=== PATIENT | female | born 1995 | race Caucasian/White ===

== ENCOUNTER 2017-01-15 19:09 | Inpatient (IN) | payer BC ==
[~2017-01-15] VITALS: Ht 149.9 cm; Wt 61.6 kg
[2017-01-15] MEDS ORDERED: SODIUM CHLORIDE 0.9% 1000ML 1,000 ML IV STA ×2 (20:03→22:18)
[2017-01-15] MEDS ORDERED: ONDANSETRON INJ 2 MG/ML 2 ML VIAL IV STA ×2 (20:43→22:37)
[2017-01-15] MEDS ORDERED: MoRPHine SULFATE 4 MG/ML 1 ML CARP\\VIAL IV STA ×2 (20:54→22:37)
[2017-01-15 21:02] LABS: MANUAL MICROSCOPIC REQUIRED? YES; URINE APPEARANCE CLEAR (CLEAR); URINE BILIRUBIN NEG (NEG); URINE COLOR YELLOW; URINE NITRITE NEG (NEG); URINE SPECIFIC GRAVITY >= 1.030 (1.000-1.030); UROBILINOGEN NEG (NEG)
[2017-01-15 21:03] LABS: PREG INTERNAL NEGATIVE QC NEG CLEAR BACKGROUND; PREG INTERNAL POSITIVE QC POS CONTROL LINE
[2017-01-15 21:05] LABS: REVIEW REQ? NO
[2017-01-15 21:11] LABS: ZZUR CULT IF INDIC CLEAN CATCH NO
[2017-01-15 21:13] LABS: BASO % 0.1 %; BASO ABS # 0.01 K/uL (0-0.2); COMPLETE YES; EOS % 0.4 %; HEMATOCRIT 42.7 % (37-47); IG% 0.3 %; LYMPH % 2.9 %; LYMPH ABS # 0.56 K/uL (1.2-3.4); MEAN CELL VOLUME 92.2 fL (80-100); MEAN CORPUSCULAR HEMOGLOBIN 30.5 pg (25-34); MEAN PLATELET VOLUME 8.9 fL (7.4-10.4); MONO % 4.3 %; PLATELET COUNT 258 K/uL (130-400); RED BLOOD COUNT 4.63 M/uL (4.2-5.4); WHITE BLOOD COUNT 19.25 K/uL (4.8-10.8)
[2017-01-15 21:32] LABS: CALCIUM 8.8 mg/dl (8.5-10.1); CREATININE 0.87 mg/dl (0.60-1.20); POTASSIUM 3.5 mmol/L (3.5-5.1)
[2017-01-15 21:59] LABS: PREG INTERNAL NEGATIVE QC NEG CLEAR BACKGROUND; PREG INTERNAL POSITIVE QC POS CONTROL LINE
[2017-01-15] MEDS ORDERED: MoRPHine SULFATE 2 MG/ML CARP ONE (23:00)
[2017-01-16] MEDS ORDERED: PROMETHAZINE HCL INJ 25 MG in SODIUM CHLORIDE 0.9% 50ML 50 ML IV STA (00:15)
[2017-01-16] MEDS ORDERED: OPTIRAY 320 IV PRN (00:30)
--- NOTE | 2017-01-16 02:10 | EMERGENCY ROOM VISIT NOTE ---
History Report prepared by Jim: Nataliia Burdick Under the Supervision of: Dr. Westley Bowen M.D. First contact with patient: 20:01 Chief Complaint: BACK PAIN Stated Complaint: BACK PAIN TOWARD THE L LOWER/UPPER CRAMPING,PUKING History of Present Illness The patient is a 21 year old female who presents to the Emergency Room with complaints of vomiting and worsening back pain beginning yesterday. The patient rates her pain as a 6/10. She also notes diffuse abdominal pain and diarrhea beginning today. The patient states she had constant vomiting for 4-5 hours this afternoon. She denies any new foods, sick contact, or blood in her vomit. The patient has a history of GERD and a cholecystectomy. She recently had a EGD done which showed ulcers. The patient is not currently taking any medications for her GERD. Patient denies sick contacts. No recent travel or antibiotic use. Pt denies LOC, headache, fevers, chills, diaphoresis, visual changes, neck pain, chest pain, breathing difficulties, melena, hematochezia, urinary symptoms, numbness, weakness, lymphadenopathy, rash, or other complaints. Source of History: patient Onset: yesterday Position: abdomen Symptom Intensity: 6/10 Timing: worsening Associated Symptoms: + vomiting, + diarrhea Review of Systems See HPI for pertinent positives and negatives. A total of ten systems were reviewed and were otherwise negative. Past Medical & Surgical Medical Problems: (1) GERD (gastroesophageal reflux disease) (2) Sepsis Surgical Problems: (1) S/P cholecystectomy Family History Patient reports no known family medical history. Social History Smoking Status: Never Smoker Housing Status: lives with roommate Occupation Status: employed Current/Historical Medications No Active Prescriptions or Reported Meds Allergies Coded Allergies: No Known Allergies (Unverified , 01/15/17) Physical Exam Vital Signs Date Time Temp Pulse Resp B/P (MAP) Pulse Ox O2 Delivery O2 Flow Rate FiO2 01/16/17 02:53 108 16 116/74 99 Room Air 01/16/17 01:09 102 18 114/79 100 Room Air 01/16/17 00:07 98 16 106/71 98 Room Air 01/15/17 22:45 90 14 106/70 97 01/15/17 21:47 90 16 124/70 97 01/15/17 19:18 37.0 110 20 115/74 98 Room Air Physical Exam GENERAL: Awake, alert, uncomfortable ill appearing, moderate distress HEAD: Normocephalic, atraumatic. No edema. EYES: Normal conjunctiva. Sclera non-icteric. OROPHARYNX: Lips, tongue, and mucosa unremarkable. No erythema or exudate. NECK: Supple. No nuchal rigidity. FROM. No adenopathy. RESPIRATORY: CTA bilaterally. No wheezes rales or rhonchi. CARDIAC: Borderline tachycardic rate, normal rhythm. ABDOMEN: Soft, non distended. moderate epigastric and mild diffuse tenderness to palpation. No rebound or guarding. MUSCULOSKELETAL: Atraumatic. No edema. NEURO: Normal sensorium. SKIN: No rash or jaundice noted Medical Decision & Procedures ER Provider Diagnostic Interpretation: Stat read CT report: Fluid containing large bowel and small bowel with questionable mucosal hyper enhancement. Findings suggest possible mild enteritis/colitis with diarrhea. No bowel obstruction. Normal appendix. No appendicitis. Cholecystectomy. No ductal dilatation. Otherwise the findings were unremarkable and noncontributory. Laboratory Results Test 01/15/17 20:45 01/15/17 20:48 01/15/17 21:18 01/16/17 03:12 RDW Standard Deviation 43.8 fL (36.4-46.3) RDW Coefficient of Variation 13.1 % (11.5-14.5) White Blood Count 19.25 K/uL (4.8-10.8) Red Blood Count 4.63 M/uL (4.2-5.4) Hemoglobin 14.1 g/dL (12.0-16.0) Hematocrit 42.7 % (37-47) Mean Corpuscular Volume 92.2 fL (80-100) Mean Corpuscular Hemoglobin 30.5 pg (25-34) Mean Corpuscular Hemoglobin Concent 33.0 g/dl (32-36) Platelet Count 258 K/uL (130-400) Mean Platelet Volume 8.9 fL (7.4-10.4) Neutrophils (%) (Auto) 92.0 % Lymphocytes (%) (Auto) 2.9 % Monocytes (%) (Auto) 4.3 % Eosinophils (%) (Auto) 0.4 % Basophils (%) (Auto) 0.1 % Neutrophils # (Auto) 17.72 K/uL (1.4-6.5) Lymphocytes # (Auto) 0.56 K/uL (1.2-3.4) Monocytes # (Auto) 0.82 K/uL (0.11-0.59) Eosinophils # (Auto) 0.08 K/uL (0-0.5) Basophils # (Auto) 0.01 K/uL (0-0.2) Immature Granulocyte % (Auto) 0.3 % Immature Granulocyte # (Auto) 0.06 K/uL (0.00-0.02) Est Creatinine Clear Calc Drug Dose 80.3 ml/min Total Bilirubin 0.6 mg/dl (0.2-1) Direct Bilirubin 0.2 mg/dl (0-0.2) Aspartate Amino Transf (AST/SGOT) 34 U/L (15-37) Alanine Aminotransferase (ALT/SGPT) 43 U/L (12-78) Alkaline Phosphatase 75 U/L (45-117) Total Protein 8.4 gm/dl (6.4-8.2) Albumin 4.2 gm/dl (3.4-5.0) Lipase 131 U/L (73-393) Urine Color YELLOW Urine Appearance CLEAR (CLEAR) Urine pH 5.0 (4.5-7.5) Urine Specific [place] >= 1.030 (1.000-1.030) Urine Protein TRACE (NEG) Urine Glucose (UA) NEG (NEG) Urine Ketones NEG (NEG) Urine Occult Blood 3+ (NEG) Urine Nitrite NEG (NEG) Urine Bilirubin NEG (NEG) Urine Urobilinogen NEG (NEG) Urine Leukocyte Esterase NEG (NEG) Urine WBC (Auto) /hpf (0-5) Urine RBC (Auto) /hpf (0-4) Urine Hyaline Casts (Auto) /lpf (0-5) Urine Epithelial Cells (Auto) /lpf (0-5) Urine Bacteria (Auto) (NEG) Urine RBC /hpf (0-4) Urine WBC /hpf (0-5) Urine Epithelial Cells /lpf (0-5) Urine Bacteria (NEG) Urine Test NEG (NEG) Human Chorionic Gonadotropin, Qual NEG (NEG) Laboratory results reviewed by me Medications Administered Medications (Trade) Dose Ordered Sig/Alex Route Start Time Stop Time Status Last Admin Dose Admin Sodium Chloride 1,000 ml @ 999 mls/hr Q1H1M STAT IV 01/15/17 20:03 01/15/17 21:03 DC 01/15/17 20:45 999 MLS/HR Ondansetron HCl (Zofran Inj) 4 mg NOW STAT IV 01/15/17 20:43 01/15/17 20:44 DC 01/15/17 21:02 4 MG Morphine Sulfate (MoRPHine SULFATE INJ) 4 mg NOW STAT IV 01/15/17 20:54 01/15/17 20:55 DC 01/15/17 21:02 4 MG Sodium Chloride 1,000 ml @ 999 mls/hr Q1H1M STAT IV 01/15/17 22:18 01/15/17 23:18 DC 01/15/17 22:23 999 MLS/HR Ondansetron HCl (Zofran Inj) 4 mg NOW STAT IV 01/15/17 22:37 01/15/17 22:38 DC 01/15/17 23:03 4 MG Morphine Sulfate (MoRPHine SULFATE INJ) 2 mg STK-MED ONCE .ROUTE 01/15/17 23:00 01/15/17 23:01 DC 01/15/17 23:03 2 MG Promethazine HCl 25 mg/Sodium Chloride 51 ml @ 204 mls/hr NOW STAT IV 01/16/17 00:15 01/16/17 00:29 DC 01/16/17 00:48 204 MLS/HR ED Course 2002: Ordered Sodium Chloride 1000 ml @ 999 mls/hr IV. 2047: The patient was evaluated in room B9. A complete history and physical exam was performed. 2042: Ordered Zofran Inj 4 mg IV. 4: Ordered Morphine Sulfate 4 mg IV. 8: Ordered Sodium Chloride 1000 ml @ 999 mls/hr IV. 2231: I updated the patient. She is resting. 2237: Ordered Zofran Inj 4 mg IV, Morphine Sulfate 2 mg IV. 2300: Ordered Morphine Sulfate 2 mg .ROUTE 0005: The patient is still mildly tender and nauseous. 0015: Promethazine HCl 25 mg/Sodium Chloride 51 ml @ 204 mls/hr IV. 0230: The patient was reassessed and was still nauseated. She was resting. Pending CT results. 0300: CT results as above. Patient was reassessed. She was still symptomatic. She had another episode of diarrhea. I discussed sending her home with medication but the patient does not feel well. She does not feel that she can handle this. I discussed treatment in the hospital under the care of the [facility] and the patient was in agreement. 0305: Discussed the case with Dr. Mckinnon of the [facility] service. He will evaluate the patient for further management. Medical Decision Triage Nursing notes reviewed. The patient's presentation and history were concerning for nausea, vomiting, diarrhea, abdominal pain and back pain. Etiologies such as gastroenteritis, food borne illness, infections, obstruction , pancreatitis, appendicitis, diverticulitis, inflammatory bowel disease, GI bleed, biliary pathology, toxicologic as well as others were entertained. The patient was evaluated. She was very uncomfortable. She had abdominal tenderness, significant nausea and persistent diarrhea. She denies any bloody diarrhea. No hematemesis. The patient had an IV established. She was hydrated. She is given Zofran. She is given a small dose of morphine. She was feeling better with this but then the nausea and pain return. She is given a second dose of fluids, Zofran, and morphine. On reassessment she was doing better but was still having nausea. She had improvement in her upper abdominal tenderness but worsening in her lower abdominal tenderness. Given the persistent symptoms imaging was performed. She is given a dose of IV Phenergan. CT imaging was reported as above. The patient still very symptomatic. She did not feel well enough to go home.I gave my usual and customary discussion regarding this issue. Consultation was made with internal medicine. The patient was evaluated in the Emergency Room for further management. Blood Pressure Screening Patient's blood pressure: Normal blood pressure Impression Primary Impression: Nausea vomiting and diarrhea Additional Impression: Generalized abdominal pain Scribe Attestation The scribe's documentation has been prepared under my direction and personally reviewed by me in its entirety. I confirm that the note above accurately reflects all work, treatment, procedures, and medical decision making performed by me. Departure Information Dispostion Being Evaluated By Hospitalist Prescriptions No Active Prescriptions or Reported Meds Referrals No Doctor, Assigned (PCP) Patient Instructions My [facility] Problem Qualifiers
[2017-01-16] MEDS ORDERED: METRONIDAZOLE 500MG / 100ML NSS IV STA (03:09)
[2017-01-16] MEDS ORDERED: LACTATED RINGER'S 1000ML 1,000 ML IV STA (03:12)
[2017-01-16] MEDS ORDERED: ONDANSETRON INJ 2 MG/ML 2 ML VIAL IV PRN (03:45)
[2017-01-16] MEDS ORDERED: MoRPHine SULFATE 2 MG/ML CARP IV PRN (03:45)
[2017-01-16] MEDS ORDERED: ACETAMINOPHEN 325 MG TAB PO PRN (03:45)
[2017-01-16] MEDS ORDERED: TRAMADOL HCL 50 MG TAB PO PRN (03:45)
[2017-01-16 04:08] LABS: BASO % 0.1 %; BASO ABS # 0.02 K/uL (0-0.2); COMPLETE YES; EOS % 0.1 %; HEMATOCRIT 36.6 % (37-47); IG% 0.3 %; LYMPH % 1.9 %; LYMPH ABS # 0.28 K/uL (1.2-3.4); MEAN CELL VOLUME 91.7 fL (80-100); MEAN CORPUSCULAR HEMOGLOBIN 30.3 pg (25-34); MEAN CORPUSCULAR HGB CONC 33.1 g/dl (32-36); MONO % 3.9 %; NEUT % 93.7 %; PLATELET COUNT 197 K/uL (130-400); RED BLOOD COUNT 3.99 M/uL (4.2-5.4); WHITE BLOOD COUNT 14.47 K/uL (4.8-10.8)
[2017-01-16 04:28] LABS: BUN/CREATININE RATIO 19.1 (10-20); CALCIUM 7.6 mg/dl (8.5-10.1); CREATININE 0.73 mg/dl (0.60-1.20); MAGNESIUM 1.7 mg/dl (1.8-2.4); POTASSIUM 3.6 mmol/L (3.5-5.1)
[2017-01-16 04:30] VITALS: BP 101/64; PULSE 93; TEMP 37.6; O2SAT 98; Ht 149.9 cm; Wt 61.6 kg
--- NOTE | 2017-01-16 04:34 | HISTORY & PHYSICAL EXAMINATION ---
DATE OF ADMISSION: 01/16/2017 PRIMARY CARE DOCTOR: Dr. Alberto. HISTORY OF PRESENT ILLNESS: History obtained from patient and records. Medical history significant for GERD. One day history of diffuse achy abdominal pain, nausea, vomiting, diarrhea more than 10 times, nonbloody. Some chills, no fever. No chest pain, no shortness of breath. Unknown sick contacts. No recent travel or antibiotic use. Burrito consumption a few days ago. Intractable symptoms at the Emergency Room. MEDICAL HISTORY: As above. 2013 - EGD, colonoscopy at [place], [place]. "ulcers" on EGD for which she was told to take OTC prn antacids. Normal colonoscopy as per patient. SURGERIES: Cholecystectomy. HOME MEDICATIONS: Probiotic. ALLERGIES: No known drug allergies. FAMILY HISTORY: Crohn's disease. PERSONAL AND SOCIAL HISTORY: Nonsmoker, no chronic intake of alcohol. 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 PHYSICAL EXAMINATION: VITAL SIGNS: Blood pressure was noted to be 115/72, pulse rate 110, RR 27, sats 98 on room air. GENERAL: Noted to be uncomfortable. No respiratory distress. SKIN: Normal color. Warm. HEENT: [place] palpebral conjunctiva. No ptosis. Dry buccal mucosa. NECK: Supple. No tenderness. LUNGS: Decreased breath sounds. No tenderness. HEART: Tachycardic. No murmur. ABDOMEN: Some tenderness to light palpation in all quadrants. EXTREMITIES: No edema. No tenderness. No gross deformities. NEUROLOGIC: Coherent. No gross focality. LABS: Hemoglobin was noted to be 14.1, hematocrit 40.7, white cells 19.2, platelets 258. Sodium 140, potassium 3.5, chloride 107, CO2 24, BUN 20, creatinine 0.8, glucose 109. LFTs, lipase normal. UA occult blood positive. CT abdomen and pelvis initial read enterocolitis ASSESSMENT: 1. Sepsis secondary to diarrheal illness/enterocolitis Possible food poisoning rule out Clostridium difficile. Patient predisposed by home cleaning work. 2. History of gastroesophageal reflux disease as per records. PLAN: GMF Cultures. Stool C. diff. check lactic acid. Analgesia, antiemetics IV fluids. Flagyl for now for presumptive C. diff in light of sepsis criteria Discontinue Flagyl if stool C. diff negative. DVT prophylaxis Lovenox subQ. Full code. MTDD
[2017-01-16] MEDS: KETOROLAC TROMETHAMINE 30 MG/ML VIAL IV PRN ×2 (04:51→13:02)
[2017-01-16] MEDS ORDERED: MAGNESIUM SULFATE 1GM / D5W 1 GM in PREMIXED IN D5W 100 ML IV STA (05:21)
[2017-01-16] MEDS ORDERED: NSS + 20MEQ KCL 1000ML 1,000 ML IV ONE (05:30)
[2017-01-16] MEDS ORDERED: LACTATED RINGER'S 1000ML 1,000 ML IV ONE (06:00)
[2017-01-16] MEDS: VANCOMYCIN HCL 125 MG/2.5ML SOLN PO SCH ×4 (06:39→23:40)
[2017-01-16] MEDS: RASPBERRY SYRUP 5 ML UDP PO SCH ×4 (06:39→23:40)
[2017-01-16 07:27] VITALS: BP 93/60; PULSE 98; TEMP 36.9; O2SAT 98
--- NOTE | 2017-01-16 07:27 | DIAGNOSTIC IMAGING REPORT ---
ABDOMEN AND PELVIS CT WITH IV CONTRAST CT DOSE: 320.63 mGy.cm HISTORY: vomiting, lower abd pain TECHNIQUE: Multiaxial CT images of the abdomen and pelvis were performed following the use of intravenous contrast. A dose lowering technique was utilized adhering to the principles of ALARA. COMPARISON STUDY: None. FINDINGS: The lung bases are clear. No pneumoperitoneum. No pneumatosis. Cholecystectomy. The liver, spleen, adrenal glands, pancreas, and kidneys are unremarkable. No hydronephrosis. No retroperitoneal lymphadenopathy. The bladder, uterus, bilateral adnexa are unremarkable. Fluid-filled colon and small bowel. No evidence for bowel obstruction. There are suggestion of mild mucosal hyperenhancement within multiple loops of small bowel. This is consistent with a nonspecific enteritis. The visualized appendix is unremarkable. IMPRESSION: 1. Fluid containing large and small bowel with questionable mucosal hyperenhancement within the small bowel. Findings favor a nonspecific enteritis. This could be due to infectious or inflammatory process. 2. Normal appendix. 3. No evidence for bowel obstruction. Electronically signed by: Sloan Romero M.D. 01/16/2017 7:25 AM Dictated Date/Time: 01/16/2017 7:21 AM
[2017-01-16] MEDS ORDERED: LACTOBACILLUS ACIDOPHILUS (FLORANEX) TAB PO SCH (08:00)
[2017-01-16] MEDS: ONDANSETRON INJ 2 MG/ML 2 ML VIAL IV. SCH ×2 (08:10→21:16)
[2017-01-16] MEDS: ENOXAPARIN 40 MG/0.4 ML SYR SQ SCH (08:14)
[2017-01-16] MEDS ORDERED: NURSING VERBAL MED ORDER ONE (08:45)
[2017-01-16] MEDS ORDERED: METRONIDAZOLE / NSS 500 MG in PREMIXED NSS 100 ML IV SCH (12:00)
[2017-01-16] MEDS: LACTOBACILLUS ACIDOPHILUS 1 GM PACK PO SCH ×3 (13:06→19:49)
[2017-01-16 15:03] VITALS: BP 99/64; PULSE 84; TEMP 37.1; O2SAT 96
[2017-01-16] MEDS: PROCHLORPERAZINE INJ 5 MG in SYRINGE 4 ML IV PRN (16:21)
--- NOTE | 2017-01-16 18:33 | Progress Note ---
Internal Med Progress Note Date of Service: Jan 16, 2017. Provider Documentation: SUBJECTIVE: Patient seen and examined. Patient reports diarrhea today. Denies acute abdominal discomfort. Denies chest pain or shortness of breath OBJECTIVE: Exam: General- no acute distress Eyes EOMI ENT- no epistaxis Neck- no JVD Lungs-clear to auscultation Heart- regular rate Abdomen- soft, nontender, + bowel sounds Extremities- no edema Neuro- no focal neurological deficits ASSESSMENT & PLAN: Patient has on imaging mild mucosal hyperenhancement within multiple loops of small bowel consistent with a nonspecific enteritis and positive for C.difficile. Patient on PO Vancomycin for C.difficile enteritis As per patient's nurse, patient having trouble with swallowing pills. Patient's symptoms of nausea and abdominal discomfort symptoms requiring further inpatient supportive care - antiemetics and pain control. Clear liquid diet as tolerated. IV fluid to avoid dehydration. Recheck Comprehensive metabolic panel tomorrow AM DVT ppx: SCDs, ambulation Vital Signs: Date Time Temp Pulse Resp B/P (MAP) Pulse Ox O2 Delivery O2 Flow Rate FiO2 01/16/17 16:00 Room Air 01/16/17 15:03 37.1 84 16 99/64 (76) 96 Room Air 01/16/17 08:10 Room Air 01/16/17 07:27 36.9 98 16 93/60 (71) 98 Room Air 01/16/17 04:30 37.6 93 18 101/64 98 Room Air 01/16/17 04:08 100 18 104/67 97 01/16/17 02:53 108 16 116/74 99 Room Air 01/16/17 01:09 102 18 114/79 100 Room Air 01/16/17 00:07 98 16 106/71 98 Room Air 01/15/17 22:45 90 14 106/70 97 01/15/17 21:47 90 16 124/70 97 01/15/17 19:18 37.0 110 20 115/74 98 Room Air Lab Results: Results Past 24 Hours Test 01/15/17 20:45 01/15/17 20:48 01/15/17 21:18 01/16/17 03:40 Range/Units White Blood Count 19.25 14.47 4.8-10.8 K/uL Red Blood Count 4.63 3.99 4.2-5.4 M/uL Hemoglobin 14.1 12.1 12.0-16.0 g/dL Hematocrit 42.7 36.6 37-47 % Mean Corpuscular Volume 92.2 91.7 80-100 fL Mean Corpuscular Hemoglobin 30.5 30.3 25-34 pg Mean Corpuscular Hemoglobin Concent 33.0 33.1 32-36 g/dl Platelet Count 258 197 130-400 K/uL Mean Platelet Volume 8.9 7.4-10.4 fL Neutrophils (%) (Auto) 92.0 93.7 % Lymphocytes (%) (Auto) 2.9 1.9 % Monocytes (%) (Auto) 4.3 3.9 % Eosinophils (%) (Auto) 0.4 0.1 % Basophils (%) (Auto) 0.1 0.1 % Neutrophils # (Auto) 17.72 13.56 1.4-6.5 K/uL Lymphocytes # (Auto) 0.56 0.28 1.2-3.4 K/uL Monocytes # (Auto) 0.82 0.56 0.11-0.59 K/uL Eosinophils # (Auto) 0.08 0.01 0-0.5 K/uL Basophils # (Auto) 0.01 0.02 0-0.2 K/uL RDW Standard Deviation 43.8 36.4-46.3 fL RDW Coefficient of Variation 13.1 11.5-14.5 % Immature Granulocyte % (Auto) 0.3 0.3 % Immature Granulocyte # (Auto) 0.06 0.04 0.00-0.02 K/uL Sodium Level 140 136 136-145 mmol/L Potassium Level 3.5 3.6 3.5-5.1 mmol/L Chloride Level 107 107 98-107 mmol/L Carbon Dioxide Level 24 24 21-32 mmol/L Anion Gap 9.0 5.0 3-11 mmol/L Blood Urea Nitrogen 22 14 7-18 mg/dl Creatinine 0.87 0.73 0.60-1.20 mg/dl Est Creatinine Clear Calc Drug Dose 80.3 95.7 ml/min Estimated GFR () 108.8 134.5 Estimated GFR (Non- 93.9 116.1 BUN/Creatinine Ratio 25.0 19.1 10-20 Random Glucose 109 128 70-99 mg/dl Calcium Level 8.8 7.6 8.5-10.1 mg/dl Total Bilirubin 0.6 0.2-1 mg/dl Direct Bilirubin 0.2 0-0.2 mg/dl Aspartate Amino Transf (AST/SGOT) 34 15-37 U/L Alanine Aminotransferase (ALT/SGPT) 43 12-78 U/L Alkaline Phosphatase 75 45-117 U/L Total Protein 8.4 6.4-8.2 gm/dl Albumin 4.2 3.4-5.0 gm/dl Lipase 131 73-393 U/L Urine Color YELLOW Urine Appearance CLEAR CLEAR Urine pH 5.0 4.5-7.5 Urine Specific [place] >= 1.030 1.000-1.030 Urine Protein TRACE NEG Urine Glucose (UA) NEG NEG Urine Ketones NEG NEG Urine Occult Blood 3+ NEG Urine Nitrite NEG NEG Urine Bilirubin NEG NEG Urine Urobilinogen NEG NEG Urine Leukocyte Esterase NEG NEG Urine WBC (Auto) 0-5 /hpf Urine RBC (Auto) 0-4 /hpf Urine Hyaline Casts (Auto) 0-5 /lpf Urine Epithelial Cells (Auto) 0-5 /lpf Urine Bacteria (Auto) NEG Urine RBC 0-4 /hpf Urine WBC 0-5 /hpf Urine Epithelial Cells 0-5 /lpf Urine Bacteria NEG Urine Test NEG NEG Human Chorionic Gonadotropin, Qual NEG NEG Prothrombin Time 11.0 9.0-12.0 SECONDS Prothromb Time International Ratio 1.0 0.9-1.1 Activated Partial Thromboplast Time 26.9 21.0-31.0 SECONDS Partial Thromboplastin Ratio 1.0 Magnesium Level 1.7 1.8-2.4 mg/dl Test 01/16/17 03:53 Range/Units Lactic Acid Level 1.1 0.4-2.0 mmol/L Microbiology Results 01/16/17 Blood Culture, Received Pending 01/16/17 Blood Culture, Received Pending 01/16/17 C.difficile Toxin B Gene (PCR) - Final, Complete Positive for C. difficile toxin B gene
[2017-01-16] MEDS ORDERED: SODIUM CHLORIDE 0.9% 1000ML 1,000 ML IV STA (18:40)
[2017-01-16 22:45] VITALS: BP 92/55; PULSE 81; TEMP 36.4; O2SAT 93
[2017-01-17 00:10] VITALS: O2SAT 93
[2017-01-17] MEDS: RASPBERRY SYRUP 5 ML UDP PO SCH ×4 (06:44→23:48)
[2017-01-17] MEDS: VANCOMYCIN HCL 125 MG/2.5ML SOLN PO SCH ×4 (06:44→23:48)
[2017-01-17 07:04] VITALS: BP 92/57; PULSE 84; TEMP 36.8; O2SAT 98
[2017-01-17 08:24] LABS: BASO % 0.3 %; BASO ABS # 0.01 K/uL (0-0.2); COMPLETE YES; EOS % 3.4 %; HEMATOCRIT 34.7 % (37-47); IG% 0.3 %; LYMPH % 28.3 %; LYMPH ABS # 1.09 K/uL (1.2-3.4); MEAN CELL VOLUME 93.5 fL (80-100); MEAN CORPUSCULAR HEMOGLOBIN 30.2 pg (25-34); MEAN CORPUSCULAR HGB CONC 32.3 g/dl (32-36); MEAN PLATELET VOLUME 9.4 fL (7.4-10.4); MONO % 15.8 %; NEUT % 51.9 %; PLATELET COUNT 154 K/uL (130-400); RED BLOOD COUNT 3.71 M/uL (4.2-5.4); WHITE BLOOD COUNT 3.85 K/uL (4.8-10.8)
[2017-01-17] MEDS: LACTOBACILLUS ACIDOPHILUS 1 GM PACK PO SCH ×4 (08:38→20:37)
[2017-01-17] MEDS: ENOXAPARIN 40 MG/0.4 ML SYR SQ SCH (08:38)
[2017-01-17 08:46] LABS: ALB/GLOB RATIO 0.9 (0.9-2); CALCIUM 7.8 mg/dl (8.5-10.1); CREATININE 0.81 mg/dl (0.60-1.20); POTASSIUM 3.6 mmol/L (3.5-5.1)
[2017-01-17] MEDS: PROCHLORPERAZINE INJ 5 MG in SYRINGE 4 ML IV PRN ×2 (09:06→19:42)
[2017-01-17 11:06] VITALS: BP 109/68; PULSE 79; O2SAT 97
[2017-01-17] MEDS ORDERED: SODIUM CHLORIDE 0.9% 1000ML 1,000 ML IV STA (14:21)
[2017-01-17 16:48] VITALS: BP 105/70; PULSE 76; TEMP 36.7; O2SAT 96
[2017-01-17] MEDS ORDERED: POTASSIUM CHLORIDE 20 MEQ TABCR PO STA (19:42)
--- NOTE | 2017-01-17 19:46 | Progress Note ---
Internal Med Progress Note Date of Service: Jan 17, 2017. Provider Documentation: SUBJECTIVE: Patient seen and examined. Patient with abdominal pain and nausea symptoms as discomfort of the chest. EKG was performed this AM with no obvious ST elevations. OBJECTIVE: Exam: General- no acute distress Eyes EOMI ENT- no epistaxis Neck- no JVD Lungs-clear to auscultation Heart- regular rate Abdomen- soft, nontender on soft palpation, tenderness on deep palpation of left and right abdomen, + bowel sounds Extremities- no edema Neuro- no focal neurological deficits ASSESSMENT & PLAN: Patient has on imaging mild mucosal hyperenhancement within multiple loops of small bowel consistent with a nonspecific enteritis and positive for C.difficile. Patient on PO Vancomycin for C.difficile enteritis. WBC count has been downtrending Hgb downtrending from admission after IV fluids, no evidence of active bleed, will monitor CBC Patient's symptoms of nausea and abdominal discomfort symptoms requiring further inpatient supportive care - antiemetics and pain control. Clear liquid diet as tolerated. IV fluid to avoid dehydration. Serum potassium 3.6. Will give oral potassium tablets DVT ppx: SCDs, ambulation encouraged Vital Signs: Date Time Temp Pulse Resp B/P (MAP) Pulse Ox O2 Delivery O2 Flow Rate FiO2 01/17/17 16:48 36.7 76 18 105/70 (82) 96 Room Air 01/17/17 11:06 79 16 109/68 (82) 97 01/17/17 08:00 Room Air 01/17/17 07:04 36.8 84 16 92/57 (69) 98 Room Air 01/17/17 00:10 93 Room Air 01/16/17 22:45 36.4 81 18 92/55 (67) 93 Room Air Lab Results: Results Past 24 Hours Test 01/17/17 07:18 Range/Units White Blood Count 3.85 4.8-10.8 K/uL Red Blood Count 3.71 4.2-5.4 M/uL Hemoglobin 11.2 12.0-16.0 g/dL Hematocrit 34.7 37-47 % Mean Corpuscular Volume 93.5 80-100 fL Mean Corpuscular Hemoglobin 30.2 25-34 pg Mean Corpuscular Hemoglobin Concent 32.3 32-36 g/dl Platelet Count 154 130-400 K/uL Mean Platelet Volume 9.4 7.4-10.4 fL Neutrophils (%) (Auto) 51.9 % Lymphocytes (%) (Auto) 28.3 % Monocytes (%) (Auto) 15.8 % Eosinophils (%) (Auto) 3.4 % Basophils (%) (Auto) 0.3 % Neutrophils # (Auto) 2.00 1.4-6.5 K/uL Lymphocytes # (Auto) 1.09 1.2-3.4 K/uL Monocytes # (Auto) 0.61 0.11-0.59 K/uL Eosinophils # (Auto) 0.13 0-0.5 K/uL Basophils # (Auto) 0.01 0-0.2 K/uL RDW Standard Deviation 44.8 36.4-46.3 fL RDW Coefficient of Variation 13.0 11.5-14.5 % Immature Granulocyte % (Auto) 0.3 % Immature Granulocyte # (Auto) 0.01 0.00-0.02 K/uL Sodium Level 140 136-145 mmol/L Potassium Level 3.6 3.5-5.1 mmol/L Chloride Level 109 98-107 mmol/L Carbon Dioxide Level 24 21-32 mmol/L Anion Gap 7.0 3-11 mmol/L Blood Urea Nitrogen 8 7-18 mg/dl Creatinine 0.81 0.60-1.20 mg/dl Est Creatinine Clear Calc Drug Dose 86.3 ml/min Estimated GFR () 118.6 Estimated GFR (Non- 102.4 BUN/Creatinine Ratio 10.0 10-20 Random Glucose 82 70-99 mg/dl Calcium Level 7.8 8.5-10.1 mg/dl Magnesium Level 2.0 1.8-2.4 mg/dl Total Bilirubin 0.4 0.2-1 mg/dl Aspartate Amino Transf (AST/SGOT) 20 15-37 U/L Alanine Aminotransferase (ALT/SGPT) 26 12-78 U/L Alkaline Phosphatase 41 45-117 U/L Total Protein 6.1 6.4-8.2 gm/dl Albumin 2.9 3.4-5.0 gm/dl Globulin 3.2 2.5-4.0 gm/dl Albumin/Globulin Ratio 0.9 0.9-2
[2017-01-17] MEDS ORDERED: POTASSIUM CHLORIDE PWD 20 MEQ PACK PO ONE (20:00)
[2017-01-17 23:32] VITALS: BP 107/69; PULSE 87; TEMP 36.9; O2SAT 97
[2017-01-18] MEDS: KETOROLAC TROMETHAMINE 30 MG/ML VIAL IV PRN (04:15)
[2017-01-18] MEDS: VANCOMYCIN HCL 125 MG/2.5ML SOLN PO SCH ×3 (05:44→16:52)
[2017-01-18] MEDS: RASPBERRY SYRUP 5 ML UDP PO SCH ×3 (05:44→16:52)
[2017-01-18 07:17] VITALS: BP 95/65; PULSE 77; TEMP 36.9; O2SAT 98
[2017-01-18 08:20] LABS: BASO % 0.2 %; BASO ABS # 0.01 K/uL (0-0.2); COMPLETE YES; EOS % 1.6 %; HEMATOCRIT 35.7 % (37-47); IG% 0.2 %; LYMPH % 29.3 %; MEAN CELL VOLUME 91.3 fL (80-100); MEAN CORPUSCULAR HEMOGLOBIN 29.9 pg (25-34); MEAN CORPUSCULAR HGB CONC 32.8 g/dl (32-36); MEAN PLATELET VOLUME 9.4 fL (7.4-10.4); MONO % 14.6 %; NEUT % 54.1 %; PLATELET COUNT 179 K/uL (130-400); RED BLOOD COUNT 3.91 M/uL (4.2-5.4); WHITE BLOOD COUNT 4.44 K/uL (4.8-10.8)
[2017-01-18 08:43] LABS: BUN/CREATININE RATIO 6.9 (10-20); CALCIUM 8.4 mg/dl (8.5-10.1); CREATININE 0.73 mg/dl (0.60-1.20); POTASSIUM 3.8 mmol/L (3.5-5.1)
[2017-01-18 08:46] LABS: ALB/GLOB RATIO 0.9 (0.9-2)
[2017-01-18] MEDS: LACTOBACILLUS ACIDOPHILUS 1 GM PACK PO SCH ×3 (09:08→16:52)
[2017-01-18] MEDS: ENOXAPARIN 40 MG/0.4 ML SYR SQ SCH (09:09)
[2017-01-18 13:47] VITALS: BP 95/65; PULSE 77; TEMP 36.9; O2SAT 98
[2017-01-18] MEDS ORDERED: NF1094 PO (14:16)
[2017-01-18] MEDS ORDERED: METO1TAB55 PO (14:16)
[2017-01-18] MEDS ORDERED: ACET-1047 PO (14:16)
--- NOTE | 2017-01-18 14:29 | Progress Note ---
Internal Med Progress Note Date of Service: Jan 18, 2017. Provider Documentation: SUBJECTIVE: Patient seen and examined. Patient's diarrhea les frequent about once or twice a day. Still some abdominal discomfort but tolerating diet. No vomiting OBJECTIVE: Exam: General- no acute distress Eyes EOMI ENT- no epistaxis Neck- no JVD Lungs-clear to auscultation Heart- regular rate Abdomen- soft, nontender on soft palpation, tenderness on deep palpation of left and right abdomen, + bowel sounds Extremities- no edema Neuro- no focal neurological deficits ASSESSMENT & PLAN: CT abdomen 01/16/17 The lung bases are clear. No pneumoperitoneum. No pneumatosis. Cholecystectomy. The liver, spleen, adrenal glands, pancreas, and kidneys are unremarkable. No hydronephrosis. No retroperitoneal lymphadenopathy. The bladder , uterus, bilateral adnexa are unremarkable. Fluid-filled colon and small bowel. No evidence for bowel obstruction. There are suggestion of mild mucosal hyperenhancement within multiple loops of small bowel. This is consistent with a nonspecific enteritis. The visualized appendix is unremarkable Patient has on imaging mild mucosal hyperenhancement within multiple loops of small bowel consistent with a nonspecific enteritis and positive for C.difficile. Patient on PO Vancomycin for C.difficile enteritis during hospital stay. Patient to be discharged with PO Vancomycin 125 mg tablets QID for with expected completion of medication for January for a total of 14 day course. Hgb downtrended from admission after IV fluids, no evidence of active bleed, stable anemia Patient's symptoms of nausea and abdominal discomfort symptoms has improved during hospital stay. Patient to be given prescription of Reglan for nausea and Acetaminophen for pain upon discharge Discharge to home with follow up 01/23/2017 11:00 AM Lou Alberto MD General Internal Medicine [facility] Vital Signs: Date Time Temp Pulse Resp B/P (MAP) Pulse Ox O2 Delivery O2 Flow Rate FiO2 01/18/17 13:47 36.9 77 16 98 Room Air 01/18/17 09:10 Room Air 01/18/17 07:17 36.9 77 16 95/65 (75) 98 Room Air 01/18/17 00:00 Room Air 01/17/17 23:32 36.9 87 18 107/69 (82) 97 Room Air 01/17/17 16:48 36.7 76 18 105/70 (82) 96 Room Air 01/17/17 16:00 Room Air Lab Results: Results Past 24 Hours Test 01/18/17 07:54 Range/Units White Blood Count 4.44 4.8-10.8 K/uL Red Blood Count 3.91 4.2-5.4 M/uL Hemoglobin 11.7 12.0-16.0 g/dL Hematocrit 35.7 37-47 % Mean Corpuscular Volume 91.3 80-100 fL Mean Corpuscular Hemoglobin 29.9 25-34 pg Mean Corpuscular Hemoglobin Concent 32.8 32-36 g/dl Platelet Count 179 130-400 K/uL Mean Platelet Volume 9.4 7.4-10.4 fL Neutrophils (%) (Auto) 54.1 % Lymphocytes (%) (Auto) 29.3 % Monocytes (%) (Auto) 14.6 % Eosinophils (%) (Auto) 1.6 % Basophils (%) (Auto) 0.2 % Neutrophils # (Auto) 2.40 1.4-6.5 K/uL Lymphocytes # (Auto) 1.30 1.2-3.4 K/uL Monocytes # (Auto) 0.65 0.11-0.59 K/uL Eosinophils # (Auto) 0.07 0-0.5 K/uL Basophils # (Auto) 0.01 0-0.2 K/uL RDW Standard Deviation 42.6 36.4-46.3 fL RDW Coefficient of Variation 12.7 11.5-14.5 % Immature Granulocyte % (Auto) 0.2 % Immature Granulocyte # (Auto) 0.01 0.00-0.02 K/uL Sodium Level 140 136-145 mmol/L Potassium Level 3.8 3.5-5.1 mmol/L Chloride Level 106 98-107 mmol/L Carbon Dioxide Level 26 21-32 mmol/L Anion Gap 8.0 3-11 mmol/L Blood Urea Nitrogen 5 7-18 mg/dl Creatinine 0.73 0.60-1.20 mg/dl Est Creatinine Clear Calc Drug Dose 95.7 ml/min Estimated GFR () 134.5 Estimated GFR (Non- 116.1 BUN/Creatinine Ratio 6.9 10-20 Random Glucose 86 70-99 mg/dl Calcium Level 8.4 8.5-10.1 mg/dl Total Bilirubin 0.3 0.2-1 mg/dl Aspartate Amino Transf (AST/SGOT) 19 15-37 U/L Alanine Aminotransferase (ALT/SGPT) 26 12-78 U/L Alkaline Phosphatase 47 45-117 U/L Total Protein 6.7 6.4-8.2 gm/dl Albumin 3.1 3.4-5.0 gm/dl Globulin 3.6 2.5-4.0 gm/dl Albumin/Globulin Ratio 0.9 0.9-2
--- NOTE | 2017-01-18 14:32 | Discharge Instructions ---
Discharge Instructions Date of Service Jan 18, 2017. Admission Reason for Admission: Sepsis Discharge Discharge Diagnosis / Problem: C.difficile enteritis Discharge Goals Goal(s): Decrease discomfort, Improve disease control Activity Recommendations Activity Limitations: resume your previous activity . Instructions / Follow-Up Instructions / Follow-Up CT abdomen 01/16/17 The lung bases are clear. No pneumoperitoneum. No pneumatosis. Cholecystectomy. The liver, spleen, adrenal glands, pancreas, and kidneys are unremarkable. No hydronephrosis. No retroperitoneal lymphadenopathy. The bladder , uterus, bilateral adnexa are unremarkable. Fluid-filled colon and small bowel. No evidence for bowel obstruction. There are suggestion of mild mucosal hyperenhancement within multiple loops of small bowel. This is consistent with a nonspecific enteritis. The visualized appendix is unremarkable Patient has on imaging mild mucosal hyperenhancement within multiple loops of small bowel consistent with a nonspecific enteritis and positive for C.difficile. Patient on PO Vancomycin for C.difficile enteritis during hospital stay. Patient to be discharged with PO Vancomycin 125 mg tablets QID for with expected completion of medication for January for a total of 14 day course. Hgb downtrended from admission after IV fluids, no evidence of active bleed, stable anemia Patient's symptoms of nausea and abdominal discomfort symptoms has improved during hospital stay. Patient to be given prescription of Reglan for nausea and Acetaminophen for pain upon discharge Discharge to home with follow up 01/23/2017 11:00 AM Lou Alberto MD General Internal Medicine [facility] Hospital Diet Patient's current hospital diet: Regular Diet Discharge Diet Recommended Diet: Regular Diet Pending Studies Studies pending at discharge: no Laboratory Results 01/18/17 07:54 Red Blood Count 3.91, Mean Corpuscular Volume 91.3, Mean Corpuscular Hemoglobin 29.9, Mean Corpuscular Hemoglobin Concent 32.8, Mean Platelet Volume 9.4, Neutrophils (%) (Auto) 54.1, Lymphocytes (%) (Auto) 29.3, Monocytes (%) (Auto) 14.6, Eosinophils (%) (Auto) 1.6, Basophils (%) (Auto) 0.2, Neutrophils # (Auto ) 2.40, Lymphocytes # (Auto) 1.30, Monocytes # (Auto) 0.65, Eosinophils # (Auto ) 0.07, Basophils # (Auto) 0.01 01/18/17 07:54 Test 01/15/17 20:45 01/15/17 20:48 01/15/17 21:18 01/16/17 03:40 Direct Bilirubin 0.2 mg/dl (0-0.2) Lipase 131 U/L (73-393) Urine Color YELLOW Urine Appearance CLEAR (CLEAR) Urine pH 5.0 (4.5-7.5) Urine Specific [place] >= 1.030 (1.000-1.030) Urine Protein TRACE (NEG) Urine Glucose (UA) NEG (NEG) Urine Ketones NEG (NEG) Urine Occult Blood 3+ (NEG) Urine Nitrite NEG (NEG) Urine Bilirubin NEG (NEG) Urine Urobilinogen NEG (NEG) Urine Leukocyte Esterase NEG (NEG) Urine WBC (Auto) /hpf (0-5) Urine RBC (Auto) /hpf (0-4) Urine Hyaline Casts (Auto) /lpf (0-5) Urine Epithelial Cells (Auto) /lpf (0-5) Urine Bacteria (Auto) (NEG) Urine RBC /hpf (0-4) Urine WBC /hpf (0-5) Urine Epithelial Cells /lpf (0-5) Urine Bacteria (NEG) Urine Test NEG (NEG) Human Chorionic Gonadotropin, Qual NEG (NEG) Prothrombin Time 11.0 SECONDS (9.0-12.0) Prothromb Time International Ratio 1.0 (0.9-1.1) Activated Partial Thromboplast Time 26.9 SECONDS (21.0-31.0) Partial Thromboplastin Ratio 1.0 Test 01/16/17 03:53 01/17/17 07:18 01/18/17 07:54 Lactic Acid Level 1.1 mmol/L (0.4-2.0) Magnesium Level 2.0 mg/dl (1.8-2.4) White Blood Count 4.44 K/uL (4.8-10.8) Red Blood Count 3.91 M/uL (4.2-5.4) Hemoglobin 11.7 g/dL (12.0-16.0) Hematocrit 35.7 % (37-47) Mean Corpuscular Volume 91.3 fL (80-100) Mean Corpuscular Hemoglobin 29.9 pg (25-34) Mean Corpuscular Hemoglobin Concent 32.8 g/dl (32-36) Platelet Count 179 K/uL (130-400) Mean Platelet Volume 9.4 fL (7.4-10.4) Neutrophils (%) (Auto) 54.1 % Lymphocytes (%) (Auto) 29.3 % Monocytes (%) (Auto) 14.6 % Eosinophils (%) (Auto) 1.6 % Basophils (%) (Auto) 0.2 % Neutrophils # (Auto) 2.40 K/uL (1.4-6.5) Lymphocytes # (Auto) 1.30 K/uL (1.2-3.4) Monocytes # (Auto) 0.65 K/uL (0.11-0.59) Eosinophils # (Auto) 0.07 K/uL (0-0.5) Basophils # (Auto) 0.01 K/uL (0-0.2) RDW Standard Deviation 42.6 fL (36.4-46.3) RDW Coefficient of Variation 12.7 % (11.5-14.5) Immature Granulocyte % (Auto) 0.2 % Immature Granulocyte # (Auto) 0.01 K/uL (0.00-0.02) Anion Gap 8.0 mmol/L (3-11) Est Creatinine Clear Calc Drug Dose 95.7 ml/min Estimated GFR () 134.5 Estimated GFR (Non- 116.1 BUN/Creatinine Ratio 6.9 (10-20) Calcium Level 8.4 mg/dl (8.5-10.1) Total Bilirubin 0.3 mg/dl (0.2-1) Aspartate Amino Transf (AST/SGOT) 19 U/L (15-37) Alanine Aminotransferase (ALT/SGPT) 26 U/L (12-78) Alkaline Phosphatase 47 U/L (45-117) Total Protein 6.7 gm/dl (6.4-8.2) Albumin 3.1 gm/dl (3.4-5.0) Globulin 3.6 gm/dl (2.5-4.0) Albumin/Globulin Ratio 0.9 (0.9-2) Date/Time Source Procedure Growth Status 01/16/17 03:53 Blood Blood Culture - Preliminary NO GROWTH TO DATE. Resulted 01/16/17 04:01 Stool C.difficile Toxin B Gene (PCR) - Final Positive for C. difficile toxin B gene Complete Medical Emergencies . Who to Call and When: Medical Emergencies: If at any time you feel your situation is an emergency, please call 911 immediately. . Non-Emergent Contact Non-Emergency issues call your: Primary Care Provider Call Non-Emergent contact if: you have a fever, your pain is not controlled, you have any medication questions . . "Provider Documentation" section prepared by Lex Harris. . VTE Core Measure Inpt VTE Proph given/why not?: SCD's
--- NOTE | 2017-01-18 14:33 | Discharge Summary ---
Discharge Summary Date of Service Jan 18, 2017. Discharge Summary Admission Date: Jan 16, 2017 at 03:14 Discharge Date: Jan 18, 2017 Discharge Disposition: Home Principal Diagnosis: C.difficile enteritis Medication Reconciliation New Medications: Metoclopramide Hcl (Reglan) 10 Mg Tab 1 TAB PO TID for Nausea for 30 Days, #90 TAB Acetaminophen (Mapap) 325 Mg Tab 650 MG PO Q4H PRN for Pain or Fever for 10 Days, #80 TAB Vancomycin HCl (Vancomycin HCl) 100 Mg/Ml Inj 125 MG PO Q6H for 12 Days, #72 TAB Admission Information HPI (per Admitting provider): HISTORY OF PRESENT ILLNESS: History obtained from patient and records. Medical history significant for GERD. One day history of diffuse achy abdominal pain, nausea, vomiting, diarrhea more than 10 times, nonbloody. Some chills, no fever. No chest pain, no shortness of breath. Unknown sick contacts. No recent travel or antibiotic use. Burrito consumption a few days ago. Intractable symptoms at the Emergency Room. MEDICAL HISTORY: As above. 2013 - EGD, colonoscopy at [place], [place]. "ulcers" on EGD for which she was told to take OTC prn antacids. Normal colonoscopy as per patient. SURGERIES: Cholecystectomy. HOME MEDICATIONS: Probiotic. ALLERGIES: No known drug allergies. FAMILY HISTORY: Crohn's disease. PERSONAL AND SOCIAL HISTORY: Nonsmoker, no chronic intake of alcohol. 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 Physical Exam (per Admitting): PHYSICAL EXAMINATION: VITAL SIGNS: Blood pressure was noted to be 115/72, pulse rate 110, RR 27, sats 98 on room air. GENERAL: Noted to be uncomfortable. No respiratory distress. SKIN: Normal color. Warm. HEENT: Intercourse palpebral conjunctiva. No ptosis. Dry buccal mucosa. NECK: Supple. No tenderness. LUNGS: Decreased breath sounds. No tenderness. HEART: Tachycardic. No murmur. ABDOMEN: Some tenderness to light palpation in all quadrants. EXTREMITIES: No edema. No tenderness. No gross deformities. NEUROLOGIC: Coherent. No gross focality. Hospital Course CT abdomen 01/16/17 The lung bases are clear. No pneumoperitoneum. No pneumatosis. Cholecystectomy. The liver, spleen, adrenal glands, pancreas, and kidneys are unremarkable. No hydronephrosis. No retroperitoneal lymphadenopathy. The bladder , uterus, bilateral adnexa are unremarkable. Fluid-filled colon and small bowel. No evidence for bowel obstruction. There are suggestion of mild mucosal hyperenhancement within multiple loops of small bowel. This is consistent with a nonspecific enteritis. The visualized appendix is unremarkable Patient has on imaging mild mucosal hyperenhancement within multiple loops of small bowel consistent with a nonspecific enteritis and positive for C.difficile. Patient on PO Vancomycin for C.difficile enteritis during hospital stay. Patient to be discharged with PO Vancomycin 125 mg tablets QID for with expected completion of medication for January for a total of 14 day course. Hgb downtrended from admission after IV fluids, no evidence of active bleed, stable anemia Patient's symptoms of nausea and abdominal discomfort symptoms has improved during hospital stay. Patient to be given prescription of Reglan for nausea and Acetaminophen for pain upon discharge Discharge to home with follow up 01/23/2017 11:00 AM Lou Alberto MD General Internal Medicine [facility] Total time spent on discharge = 60 minutes This includes examination of the patient, discharge planning, medication reconciliation, and communication with other providers. Discharge Instructions see above
[2017-01-18] MEDS ORDERED: VANC1SUS OR (14:51)
--- NOTE | 2017-01-22 07:57 | EDITING REQUIRED CODING QUERY ---
CODING QUERY To promote full compliance with coding requirements relating to patient care, provider participation is requested in all cases of sewage screen operator uncertainty. Please assist us with the question(s) below: Coding Question(s): Dr. Harris, Sepsis is documented in the H&P, but is not listed in the discharge summary. Please clarify if: ( ) sepsis was present and treated during this encounter ( ) POA ( ) not POA (x) sepsis was ruled out ( ) unable to determine ( ) other, please explain Physician's Response(s): Thank you for your time, MALINDA Alcantara, INDUSTRIAL CHEMICALS SUPERVISOR
== END 2017-01-18 17:05 | disposition home or self-care (01) | DRG 373 ==
LOC: C.EDB 19:12 → C.MS4W 01-16 03:14 → ENRESERV 01-16 03:40
PROVIDERS: ADMIT Internal Medicine; ATTEND Hospitalist
DX: A04.72 Enterocolitis due to Clostridium difficile, not specified as recurrent (principal); R07.9 Chest pain, unspecified; D64.9 Anemia, unspecified; Z87.11 Personal history of peptic ulcer disease; Z83.79 Family history of other diseases of the digestive system

== ENCOUNTER 2017-02-17 13:02 | Emergency (ER) | payer BC ==
[~2017-02-17] VITALS: Ht 149.9 cm; Wt 59.6 kg
[~2017-02-17 13:02] MED LIST: ACET-1047 PO; METO1TAB55 PO; VANC1SUS OR
[2017-02-17 13:19] VITALS: TEMP 36.7; Ht 149.9 cm; Wt 59.6 kg
[2017-02-17] MEDS ORDERED: ONDANSETRON INJ 2 MG/ML 2 ML VIAL IV STA (14:02)
[2017-02-17] MEDS ORDERED: SODIUM CHLORIDE 0.9% 1000ML 1,000 ML IV STA (14:02)
[2017-02-17 14:29] LABS: BASO % 0.2 %; BASO ABS # 0.01 K/uL (0-0.2); HEMATOCRIT 39.3 % (37-47); HEMOGLOBIN 13.4 g/dL (12.0-16.0); IG# 0.01 K/uL (0.00-0.02); LYMPH % 26.2 %; LYMPH ABS # 1.69 K/uL (1.2-3.4); MEAN CELL VOLUME 89.3 fL (80-100); MEAN CORPUSCULAR HEMOGLOBIN 30.5 pg (25-34); MEAN CORPUSCULAR HGB CONC 34.1 g/dl (32-36); MEAN PLATELET VOLUME 9.3 fL (7.4-10.4); MONO % 8.4 %; MONO ABS # 0.54 K/uL (0.11-0.59); PLATELET COUNT 238 K/uL (130-400); RED CELL DISTRIBUTION WIDTH CV 12.4 % (11.5-14.5); WHITE BLOOD COUNT 6.45 K/uL (4.8-10.8)
[2017-02-17 15:01] LABS: BLOOD UREA NITROGEN 10 mg/dl (7-18); CARBON DIOXIDE 28 mmol/L (21-32); CREATININE 0.96 mg/dl (0.60-1.20); GLUCOSE 93 mg/dl (70-99); SODIUM 138 mmol/L (136-145)
[2017-02-17 15:02] LABS: ALBUMIN 4.1 gm/dl (3.4-5.0); ALT/SGPT 17 U/L (12-78); CALCIUM 8.7 mg/dl (8.5-10.1); LIPASE 105 U/L (73-393)
[2017-02-17 15:04] LABS: ALKALINE PHOSPHATASE 52 U/L (45-117); AST/SGOT 15 U/L (15-37); TOTAL PROTEIN 7.7 gm/dl (6.4-8.2)
--- NOTE | 2017-02-17 15:42 | EMERGENCY ROOM VISIT NOTE ---
History First contact with patient: 13:26 Chief Complaint: DIARRHEA Stated Complaint: CRAMPS,DIARRHEA AND NAUSEA Nursing Triage Summary: patient was diagnosed with cdiff Jan 16 and finished antibiotic around february 03. patient states since then patient continues to feel intermittent cramping, bloating, occasional diarrhea. patient states she has not had a normal BM since the . History of Present Illness The patient is a 21 year old female who presents to the Emergency Room with complaints of abdominal cramping, nausea, and loose stools off and on for the past several days. Patient reports a month ago that she was diagnosed with C. difficile infection and was hospitalized for this. She finished taking her vancomycin antibiotic on February 03 and states she was feeling much better after this treatment. A few days later she began to have some increased cramping, bloating, and occasional loose stools. She denies any stomach pain, back pain, watery diarrhea, bloody or black stools, vomiting, fevers or chills. She does report a history of IBS and states that her symptoms are similar to previous flares with her IBS. She takes probiotic to treat her IBS. When asked what brought her to the emergency department, she states "I caught my PCP earlier this week to get an appointment and they scheduled me for an appointment , but I forgot when it was so I missed it. I brought my boyfriend to the ER today to be checked for something else I figured I would just get checked out today too while I'm here." Review of Systems A complete 10 point review of systems was reviewed with the patient with pertinent positives and negatives as per history of present illness. All else were negative. Past Medical/Surgical History Medical Problems: (1) GERD (gastroesophageal reflux disease) (2) Sepsis Surgical Problems: (1) S/P cholecystectomy Family History Patient reports no known family medical history. Social History Smoking Status: Never Smoker Housing Status: lives with roommate Occupation Status: employed Current/Historical Medications Scheduled Metoclopramide Hcl (Reglan), 1 TAB PO TID Scheduled PRN Acetaminophen (Mapap), 650 MG PO Q4H PRN for Pain or Fever Allergies No known allergies Physical Exam Vital Signs Date Time Temp Pulse Resp B/P (MAP) Pulse Ox O2 Delivery O2 Flow Rate FiO2 02/17/17 15:58 70 18 99/59 99 Room Air 12/30/17 15:00 68 16 102/61 99 Room Air 02/17/17 13:19 36.7 87 18 99/64 95 Room Air Physical Exam CONSTITUTIONAL: Pleasant and cooperative. No acute distress. Mildly dehydrated , but otherwise well appearing and well nourished. HEENT: Normocephalic, atraumatic. Pupils equal, round and reactive to light, EOMI. TMs normal. Pharynx normal. Tacky mucous membranes. NECK: Supple, full active range of motion without discomfort. RESPIRATORY: Clear to auscultation bilaterally with no wheezing, crackles, rhonchi or stridor. Equal expansion bilaterally. CARDIOVASCULAR: Regular rate and rhythm with no murmurs, rubs or gallops. Normal peripheral perfusion. No edema. GASTROINTESTINAL: Soft, nontender, nondistended. No palpable masses or HSM. Normal bowel sounds present in all quadrants. MUSCULOSKELETAL: Full range of motion of all joints without discomfort. INTEGUMENTARY: No rash or other significant dermatologic conditions noted. NEUROLOGIC: Alert and oriented X 4 with normal affect. Cranial nerves II-XII grossly intact. No focal neurologic deficits noted. Medical Decision & Procedures Laboratory Results 02/17/17 14:10 Red Blood Count 4.40, Mean Corpuscular Volume 89.3, Mean Corpuscular Hemoglobin 30.5, Mean Corpuscular Hemoglobin Concent 34.1, Mean Platelet Volume 9.3, Neutrophils (%) (Auto) 65.0, Lymphocytes (%) (Auto) 26.2, Monocytes (%) (Auto) 8.4, Eosinophils (%) (Auto) 0.0, Basophils (%) (Auto) 0.2, Neutrophils # (Auto) 4.20, Lymphocytes # (Auto) 1.69, Monocytes # (Auto) 0.54, Eosinophils # (Auto) 0.00, Basophils # (Auto) 0.01 02/17/17 14:10 Test 02/17/17 13:35 02/17/17 14:10 Urine Color YELLOW Urine Appearance CLEAR (CLEAR) Urine pH 6.0 (4.5-7.5) Urine Specific [place] 1.010 (1.000-1.030) Urine Protein NEG (NEG) Urine Glucose (UA) NEG (NEG) Urine Ketones NEG (NEG) Urine Occult Blood NEG (NEG) Urine Nitrite NEG (NEG) Urine Bilirubin NEG (NEG) Urine Urobilinogen NEG (NEG) Urine Leukocyte Esterase TRACE (NEG) Urine WBC (Auto) 1-5 /hpf (0-5) Urine RBC (Auto) 0-4 /hpf (0-4) Urine Hyaline Casts (Auto) 1-5 /lpf (0-5) Urine Epithelial Cells (Auto) >30 /lpf (0-5) Urine Bacteria (Auto) NEG (NEG) Urine Test NEG (NEG) White Blood Count 6.45 K/uL (4.8-10.8) Red Blood Count 4.40 M/uL (4.2-5.4) Hemoglobin 13.4 g/dL (12.0-16.0) Hematocrit 39.3 % (37-47) Mean Corpuscular Volume 89.3 fL (80-100) Mean Corpuscular Hemoglobin 30.5 pg (25-34) Mean Corpuscular Hemoglobin Concent 34.1 g/dl (32-36) Platelet Count 238 K/uL (130-400) Mean Platelet Volume 9.3 fL (7.4-10.4) Neutrophils (%) (Auto) 65.0 % Lymphocytes (%) (Auto) 26.2 % Monocytes (%) (Auto) 8.4 % Eosinophils (%) (Auto) 0.0 % Basophils (%) (Auto) 0.2 % Neutrophils # (Auto) 4.20 K/uL (1.4-6.5) Lymphocytes # (Auto) 1.69 K/uL (1.2-3.4) Monocytes # (Auto) 0.54 K/uL (0.11-0.59) Eosinophils # (Auto) 0.00 K/uL (0-0.5) Basophils # (Auto) 0.01 K/uL (0-0.2) RDW Standard Deviation 40.0 fL (36.4-46.3) RDW Coefficient of Variation 12.4 % (11.5-14.5) Immature Granulocyte % (Auto) 0.2 % Immature Granulocyte # (Auto) 0.01 K/uL (0.00-0.02) Anion Gap 5.0 mmol/L (3-11) Est Creatinine Clear Calc Drug Dose 71.6 ml/min Estimated GFR () 96.6 Estimated GFR (Non- 83.4 BUN/Creatinine Ratio 10.5 (10-20) Calcium Level 8.7 mg/dl (8.5-10.1) Total Bilirubin 0.4 mg/dl (0.2-1) Direct Bilirubin < 0.1 mg/dl (0-0.2) Aspartate Amino Transf (AST/SGOT) 15 U/L (15-37) Alanine Aminotransferase (ALT/SGPT) 17 U/L (12-78) Alkaline Phosphatase 52 U/L (45-117) Total Protein 7.7 gm/dl (6.4-8.2) Albumin 4.1 gm/dl (3.4-5.0) Lipase 105 U/L (73-393) Medications Administered Medications (Trade) Dose Ordered Sig/Alex Route Start Time Stop Time Status Last Admin Dose Admin Sodium Chloride 1,000 ml @ 999 mls/hr Q1H1M STAT IV 02/17/17 14:02 02/17/17 15:02 DC 02/17/17 14:02 999 MLS/HR Ondansetron HCl (Zofran Inj) 4 mg NOW STAT IV 02/17/17 14:02 02/17/17 14:04 DC 02/17/17 14:19 4 MG Medical Decision CC: Patient presenting with complaint of nausea, abdominal cramping, loose stools Interpretation of Labs: No leukocytosis, no anemia, no significant electrolyte abnormality, normal renal function, normal liver enzymes and lipase. UA negative for infection. Urine negative. Differential Diagnosis: Includes, but not limited to gastroenteritis, gastritis , C. difficile colitis, IBS, UTI, dehydration, electrolyte abnormality, among others. Medication Reconciliation: I attest that I have personally reviewed the patient' s current medication list. Vital signs review: I reviewed the patient's vital signs and interpret them as follows: T: Afebrile; BP: Slight hypotension (appears to be baseline for patient); HR: Within normal limits; RR: Within normal limits; Pulse Ox: Within normal limits on room air. Blood pressure screening: The patient was found to have normal blood pressure on screening and does not require follow-up for repeat blood pressure check. Summary: Patient was evaluated at bedside, history and physical exam performed. Patient is alert and oriented, no acute distress, resting calmly in the stretcher. Patient has diffuse, mild tenderness to palpation of the abdomen. Rebound tenderness or guarding. Normal bowel sounds. Patient did have a bowel movement while in the emergency department, nursing notified me that it was soft and formed. Orders were placed at bedside for labs, UA and urine , IV fluids for hydration, IV Zofran for nausea. Patient discussed with Dr. Son, who agrees with my assessment and plan. Labs reviewed as above, no acute abnormalities. Patient reassessed multiple times throughout ED stay, she reports feeling much better after IV fluids and Zofran. She is tolerating oral fluids without difficulty. Patient was reassured that she does not seem to have a relapse of her C. difficile today. Patient was encouraged to continue following up closely with her PCP, and was given return precautions should her symptoms worsen, she verbalized understanding. Patient was discharged home in stable condition and ambulatory. Impression Primary Impression: Nausea Additional Impression: Abdominal cramping, generalized Departure Information Dispostion Home / Self-Care Condition GOOD Referrals Lou Alberto M.D. (PCP) Patient Instructions ED Diet Vomiting Diarrhea, [facility] Additional Instructions You have been treated in the Emergency Department your nausea and abdominal cramps. Laboratory results have ruled out any emergent causes for your symptoms which would warrant admission to the hospital. Continue your prescribed medication for nausea as needed. For pain control, you may use the following [id number] medicines (if >12 yo): - Regular strength (325mg/tab) Tylenol (acetaminophen) 2 tabs every 4-6 hours as needed. Do not exceed 10 tablets in a 24 hour period. Avoid taking more than 3000 mg of Tylenol per day. This includes any other sources of acetaminophen you may take on a regular basis. - Regular strength (200 mg/tab) Advil (ibuprofen) 1-2 tabs every 4-6 hours as needed. Do not exceed a dose of 2400 mg per day. You may try using a heating pad to your abdomen to help with cramping pains. Drink plenty of fluids to stay well hydrated. As with any trip to the Emergency Department, you should follow-up with your Primary Care Provider from today's visit. Return to the emergency department if your symptoms persist despite treatment plan outlined above or if the following symptoms occur: increased fevers, chills , worsening nausea/vomiting, blood in your stool or urine. Problem Qualifiers
[2017-02-17 15:58] VITALS: BP 99/59; PULSE 70; O2SAT 99
== END 2017-02-17 16:04 | disposition home or self-care (01) ==
LOC: C.EDB 13:03 → C.EDA 16:04
DX: R11.0 Nausea (principal); R10.9 Unspecified abdominal pain; K21.9 Gastro-esophageal reflux disease without esophagitis

== ENCOUNTER 2017-03-02 02:57 | Emergency (ER) | payer BC ==
[~2017-03-02] VITALS: Ht 149.9 cm; Wt 58.2 kg
[~2017-03-02 02:57] MED LIST changes: -METO1TAB55 PO; -VANC1SUS OR
[2017-03-02 03:04] VITALS: TEMP 36.9; Ht 149.9 cm; Wt 58.2 kg
[2017-03-02 03:57] LABS: BASO % 0.1 %; BASO ABS # 0.01 K/uL (0-0.2); HEMATOCRIT 40.5 % (37-47); HEMOGLOBIN 13.9 g/dL (12.0-16.0); IG# 0.01 K/uL (0.00-0.02); LYMPH % 28.8 %; LYMPH ABS # 2.03 K/uL (1.2-3.4); MEAN CORPUSCULAR HEMOGLOBIN 30.2 pg (25-34); MEAN CORPUSCULAR HGB CONC 34.3 g/dl (32-36); MEAN PLATELET VOLUME 9.2 fL (7.4-10.4); MONO % 14.7 %; MONO ABS # 1.04 K/uL (0.11-0.59); NEUT % 56.3 %; NEUT ABS # 3.97 K/uL (1.4-6.5); PLATELET COUNT 224 K/uL (130-400); RED CELL DISTRIBUTION WIDTH CV 12.5 % (11.5-14.5); RED CELL DISTRIBUTION WIDTH SD 40.3 fL (36.4-46.3); WHITE BLOOD COUNT 7.06 K/uL (4.8-10.8)
[2017-03-02 04:13] LABS: CALCIUM 9.1 mg/dl (8.5-10.1); CREATININE 0.86 mg/dl (0.60-1.20); POTASSIUM 3.8 mmol/L (3.5-5.1)
[2017-03-02] MEDS ORDERED: DOXYCYCLINE HYCLATE 100 MG CAP PO ONE (04:15)
[2017-03-02] MEDS ORDERED: CEFTRIAXONE SOD 350MG/ML 1 GM VIAL IM STA (04:15)
[2017-03-02] MEDS ORDERED: ONDANSETRON HOME PACK 4MG OD TAB PO ONE (04:15)
[2017-03-02] MEDS ORDERED: METRONIDAZOLE 250 MG TAB PO STA (04:15)
[2017-03-02] MEDS ORDERED: METO-157 PO (06:04)
[2017-03-02] MEDS ORDERED: MISCCAP80 PO (06:05)
--- NOTE | 2017-03-02 06:05 | EMERGENCY ROOM VISIT NOTE ---
History First contact with patient: 03:27 Chief Complaint: VAGINAL DISCHARGE Stated Complaint: TEAR BELOW VAGINA AND BLISTERS, PAIN URINATING, History of Present Illness The patient is a 21 year old female who presents to the Emergency Room with complaints of vaginal pain and discharge with rash for the past 2 days. No history of STI's in the past. Patient is sexually active and her partner is here currently. Patient describes the pain as burning, ranging in severity 6 out of 10 worse with palpation and better with rest. Patient denies fevers, nausea, vomiting, diarrhea, back pain, abdominal pain. She has yellow-white discharge. Review of Systems See HPI for pertinent positives & negatives. A total of 10 systems reviewed and were otherwise negative. Past Medical/Surgical History Medical Problems: (1) GERD (gastroesophageal reflux disease) (2) Sepsis Surgical Problems: (1) S/P cholecystectomy Family History Patient reports no known family medical history. Social History Smoking Status: Never Smoker Drug Use: none Marital Status: in relationship Housing Status: lives with roommate Occupation Status: employed Current/Historical Medications Scheduled PRN Acetaminophen (Mapap), 650 MG PO Q4H PRN for Pain or Fever Metoclopramide Hcl (Reglan), 10 MG PO Q6H PRN for Nausea Physical Exam Vital Signs Date Time Temp Pulse Resp B/P (MAP) Pulse Ox O2 Delivery O2 Flow Rate FiO2 03/02/17 04:20 99 16 106/66 99 Room Air 03/02/17 03:04 36.9 109 18 101/69 97 Room Air Physical Exam VITALS: Vitals are noted on the nurse's note and reviewed by myself. Vital signs stable. GENERAL: Pleasant female, in no acute distress, nondiaphoretic, well-developed well-nourished. SKIN: Capillary reflex less than 2 seconds. HEENT: Normocephalic. PERRLA. EOMI. Nares patent. Mucous membranes moist. Neck is supple without nuchal rigidity. HEART: Regular rate and rhythm without murmurs gallops or rubs. LUNGS: Clear to auscultation bilaterally without wheezes, rales or rhonchi. No retractions or accessory muscle use. ABDOMEN: Positive bowel sounds x 4. Normal tympanic percussion. Soft, nontender, without masses or organomegaly. Juárez sign negative. No guarding or rebound tenderness. No CVA tenderness exam: External female genitalia with ulcers on erythematous base tender to palpation most consistent with herpes, vaginal vault with yellow-white discharge , cervix is erythematous, cultures taken and sent, positive CMT tenderness, bilateral adnexal tenderness. General Accounting Clerk present. MUSCULOSKELETAL: No gross musculoskeletal defects. NEURO: Patient was alert and oriented to person place and time. Normal sensation to light and sharp touch. No focal neurological deficits. Medical Decision & Procedures Laboratory Results 03/02/17 03:40 Red Blood Count 4.60, Mean Corpuscular Volume 88.0, Mean Corpuscular Hemoglobin 30.2, Mean Corpuscular Hemoglobin Concent 34.3, Mean Platelet Volume 9.2, Neutrophils (%) (Auto) 56.3, Lymphocytes (%) (Auto) 28.8, Monocytes (%) (Auto) 14.7, Eosinophils (%) (Auto) 0.0, Basophils (%) (Auto) 0.1, Neutrophils # (Auto ) 3.97, Lymphocytes # (Auto) 2.03, Monocytes # (Auto) 1.04, Eosinophils # (Auto ) 0.00, Basophils # (Auto) 0.01 03/02/17 03:40 Test 03/02/17 03:10 03/02/17 03:40 Urine Color YELLOW Urine Appearance CLOUDY (CLEAR) Urine pH 6.0 (4.5-7.5) Urine Specific [place] 1.015 (1.000-1.030) Urine Protein NEG (NEG) Urine Glucose (UA) NEG (NEG) Urine Ketones NEG (NEG) Urine Occult Blood NEG (NEG) Urine Nitrite NEG (NEG) Urine Bilirubin NEG (NEG) Urine Urobilinogen NEG (NEG) Urine Leukocyte Esterase SMALL (NEG) Urine WBC (Auto) 1-5 /hpf (0-5) Urine RBC (Auto) 0-4 /hpf (0-4) Urine Hyaline Casts (Auto) 0 /lpf (0-5) Urine Epithelial Cells (Auto) >30 /lpf (0-5) Urine Bacteria (Auto) 1+ (NEG) Urine Crystals (NONE PRSENT) Urine Yeast (Auto) PRESENT (NONE PRSENT) Urine Test NEG (NEG) White Blood Count 7.06 K/uL (4.8-10.8) Red Blood Count 4.60 M/uL (4.2-5.4) Hemoglobin 13.9 g/dL (12.0-16.0) Hematocrit 40.5 % (37-47) Mean Corpuscular Volume 88.0 fL (80-100) Mean Corpuscular Hemoglobin 30.2 pg (25-34) Mean Corpuscular Hemoglobin Concent 34.3 g/dl (32-36) Platelet Count 224 K/uL (130-400) Mean Platelet Volume 9.2 fL (7.4-10.4) Neutrophils (%) (Auto) 56.3 % Lymphocytes (%) (Auto) 28.8 % Monocytes (%) (Auto) 14.7 % Eosinophils (%) (Auto) 0.0 % Basophils (%) (Auto) 0.1 % Neutrophils # (Auto) 3.97 K/uL (1.4-6.5) Lymphocytes # (Auto) 2.03 K/uL (1.2-3.4) Monocytes # (Auto) 1.04 K/uL (0.11-0.59) Eosinophils # (Auto) 0.00 K/uL (0-0.5) Basophils # (Auto) 0.01 K/uL (0-0.2) RDW Standard Deviation 40.3 fL (36.4-46.3) RDW Coefficient of Variation 12.5 % (11.5-14.5) Immature Granulocyte % (Auto) 0.1 % Immature Granulocyte # (Auto) 0.01 K/uL (0.00-0.02) Anion Gap 5.0 mmol/L (3-11) Est Creatinine Clear Calc Drug Dose 79.1 ml/min Estimated GFR () 110.4 Estimated GFR (Non- 95.2 BUN/Creatinine Ratio 13.6 (10-20) Calcium Level 9.1 mg/dl (8.5-10.1) Medications Administered Medications (Trade) Dose Ordered Sig/Alex Route Start Time Stop Time Status Last Admin Dose Admin Valacyclovir HCl (Valtrex Tab) 1,000 mg NOW ONCE PO 03/02/17 03:45 03/02/17 03:47 DC 03/02/17 04:04 1,000 MG Ondansetron HCl (ZOFRAN ODT 4MG Home Pack) 1 homepack UD ONCE PO 03/02/17 04:15 03/02/17 04:17 DC 03/02/17 05:21 1 HOMEPACK Ceftriaxone Sodium (Rocephin Im) 250 mg NOW STAT IM 03/02/17 04:15 03/02/17 04:17 DC 03/02/17 05:20 250 MG Doxycycline Hyclate (Vibramycin Cap) 100 mg ONE ONCE PO 03/02/17 04:15 03/02/17 04:17 DC 03/02/17 05:21 100 MG Metronidazole (Flagyl Tab) 2,000 mg NOW STAT PO 03/02/17 04:15 03/02/17 04:17 DC 03/02/17 05:20 2,000 MG ED Course Prior records/ancillary studies reviewed. Triage Nursing notes reviewed. Additional history obtained from the friend. The patient's history was concerning for vaginal bleeding and painful rash. Differential diagnosis: Differential diagnosis includes salpingitis, , ectopic , incomplete , septic , ruptured ovarian cyst, ovarian torsion, Mittelschmerz, endometritis, dysmenorrhea, appendicitis, PID, and others. Physical examination: As above. Vitals signs revealed stable. ER treatment provided: Valtrex, Rocephin, doxycycline, Flagyl On reassessment the patient felt better. Diagnostic interpretation by me: The labs revealed no leukocytosis. Vaginal cultures pending Imaging studies: Ultrasound reviewed and read by stat radiology with blood flow to both ovaries and without abscess This appears to be consistent with herpes and PID. Patient was advised to abstain from intercourse until cultures are reviewed. She is advised to notify her partner to get checked for STIs. She was started on medications. She is advised she most likely have flares of herpes in the future. She is advised to follow-up with BRANCH OFFICE ADMINISTRATOR. She is advised to return to the ER immediately for fevers, pain, vomiting, worsening signs or symptoms or as needed. Patient did not have acute abdomen on exam. No signs of sepsis. By the evaluation outlined above emergent etiologies such as sepsis, bacteremia, torsion, ectopic , trauma, as well as others were deemed relatively unlikely. The pt informed about the findings as listed above. All questions were answered and pleased with the treatment. Return instructions were outlined and the patient was discharged in stable condition. Outpatient prescription management: Valtrex, doxycycline Referral: The patient was referred to BRAN[facility] OFFICE ADMINISTRATOR for follow-up in 2 to 3 days for a recheck of her current condition. Case reviewed with my attending The chart was completed utilizing [employer] Speech voice recognition software. Grammatical errors, random word insertions, pronoun errors, and incomplete sentences are an occassional consequence of this system due to software limitations, ambient noise, and hardware issues. Any formal questions or concerns about the content, text, or information contained within the body of this dictation should be directly addressed to the physician carpenter's assistant for clarification. Medical Decision As above Medication Reconcilliation Current Medication List: was personally reviewed by me Blood Pressure Screening Patient's blood pressure: Normal blood pressure Impression Primary Impression: Herpes simplex of female genitalia Additional Impression: PID (acute pelvic inflammatory disease) Departure Information Dispostion Home / Self-Care Condition GOOD Referrals No Doctor, Assigned (PCP) Patient Instructions My [facility] Additional Instructions Have your partner get checked for STIs. Valtrex 1 g twice a day for 10 days. .Any medication can cause an allergic reaction, stop the pills immediately and return to the ER for rash, hives, breathing difficulties, or swelling. Doxycycline 100mg: Take one pill twice daily for 14 days for your infection. Take with food, but avoid dairy. Avoid prolonged sun exposure since this medication makes you temporarily more susceptible to sunburns. All antibiotics can cause diarrhea. If this occurs and you feel worse or it does not resolve in 1-2 days follow up with your doctor or return to the Emergency Department as this could be signs of serious underlying problems. Any medication can cause an allergic reaction, stop the pills immediately and return to the ER for rash, hives, breathing difficulties, or swelling. Rest. Stay well hydrated. No strenuous activity or intercourse until cleared by BRANCH OFFICE ADMINISTRATOR and rash has resolved. No intercourse until cleared by BRANCH OFFICE ADMINISTRATOR or family doctor. Zofran 4 tablet every 6 hours as needed for nausea and vomiting. Ibuprofen(Motrin, Advil) may be used for fever or pain. Use 600mg every six hours as needed. Take with food. Avoid using more than 2400mg in a 24 hour period. Do not use 2400mg per day for more than three consecutive days without physician direction. Prolonged inappropriate use can lead to stomach upset or ulcers. (AND/OR) Acetaminophen(Tylenol) may be used for fever or pain. Use 1000mg every six hours as needed. Avoid using more than 3000mg in a 24 hour period. Rest and drink plenty of fluids as tolerated. Continue current medications. Return to the ER immediately for worsening or persistent pelvic pain, abdominal pain, vomiting, fevers, chest pains, difficulty breathing, worsening of your condition, or as needed. Follow up with your BRANCH OFFICE ADMINISTRATOR in 2-3 days for a recheck of your current condition. Problem Qualifiers
[2017-03-02 06:16] VITALS: BP 104/66; PULSE 96; O2SAT 97
[2017-03-02] MEDS ORDERED: VALA1TAB2 PO (06:19)
[2017-03-02] MEDS ORDERED: DOXY100C2 PO (06:19)
--- NOTE | 2017-03-02 07:38 | DIAGNOSTIC IMAGING REPORT ---
EXAMINATION: PELVIC ULTRASOUND (transabdominal and endovaginal scanning) CLINICAL HISTORY: Pelvic pain. PID. Possible abscess. COMPARISON STUDY: FINDINGS: The uterus measured 6 x 3.1 x 3.4 cm. The endometrial stripe measured 8 mm. The right ovary measured 32 x 18 x 24 mm. The left ovary measured 35 x 16 x 22 mm. There is no ultrasonographic evidence of ovarian torsion. It should be noted that ovarian torsion can be present with normal Doppler ultrasonographic findings. There is trace free fluid likely physiologic. IMPRESSION: Unremarkable pelvic ultrasound. Electronically signed by: Johnny Cox M.D. 03/02/2017 7:37 AM Dictated Date/Time: 03/02/2017 7:25 AM
== END 2017-03-02 06:31 | disposition home or self-care (01) ==
LOC: C.EDB 02:59 → C.EDA 06:31
DX: B00.9 Herpesviral infection, unspecified (principal); N73.9 Female pelvic inflammatory disease, unspecified; K21.9 Gastro-esophageal reflux disease without esophagitis

== ENCOUNTER → 2017-05-04 | Outpatient (CLI) | payer BC ==
[~2017-05-04] MED LIST changes: -ACET-1047 PO; +DIPHTAB PO; +DOXY100C2 PO; +METO-157 PO; +METO1TAB54 PO; +MISCCAP80 PO; +OPTIRAY 320 IV PRN
--- NOTE | 2017-05-04 15:47 | DIAGNOSTIC IMAGING REPORT ---
ABDOMEN AND PELVIS CT WITH IV AND ORAL CONTRAST CT DOSE: 298.75 mGy.cm HISTORY: Acute nausea and diarrhea. DIARRHEA,NAUSEA, VOMTING, PERIUMBILICAL PAIN TECHNIQUE: Multiaxial CT images of the abdomen and pelvis were performed following the use of intravenous and oral contrast. A dose lowering technique was utilized adhering to the principles of ALARA. COMPARISON STUDY: CT abdomen and pelvis 01/16/2017 FINDINGS: Imaged lung bases appear clear and are unremarkable. There is no pneumatosis or pneumoperitoneum identified. The imaged inferior cardiac chambers are unremarkable. Prior cholecystectomy. The liver, spleen, pancreas and adrenal glands are within normal limits. Kidneys, ureters and urinary bladder are also within normal limits. Uterus and right adnexum are unremarkable. 3.2 x 2.8 cm ovoid cystic lesion of the left adnexum is noted. Aorta is normal in course and caliber. No bulky adenopathy, ascites or mesenteric inflammatory changes. No bowel obstruction or focal bowel wall thickening. The appendix is contrast opacified and appears normal within the abdominal right lower quadrant. Soft tissues are unremarkable. The bones appear intact. IMPRESSION: 1. No acute intra-abdominal or intrapelvic abnormality identified. 2. No bowel obstruction or focal bowel wall thickening. Normal appendix. 3. Cystic lesion of the left adnexum, 3.2 cm suggests ovarian cyst. 4. Prior cholecystectomy. Electronically signed by: Addy Carranza M.D. 05/04/2017 3:46 PM Dictated Date/Time: 05/04/2017 3:35 PM
== END | disposition home or self-care (01) ==
LOC: C.CTS 12:56
PROVIDERS: ATTEND Internal Medicine
DX: R10.33 Periumbilical pain (principal); R93.8 Abnormal findings on diagnostic imaging of other specified body structures; Z90.49 Acquired absence of other specified parts of digestive tract

== ENCOUNTER 2017-05-05 00:58 | Emergency (ER) | payer BC ==
[~2017-05-05] VITALS: Ht 149.9 cm; Wt 58.2 kg
[~2017-05-05 00:58] MED LIST changes: -DIPHTAB PO; -METO1TAB54 PO; -OPTIRAY 320 IV PRN
[2017-05-05 01:05] VITALS: TEMP 36.8; Ht 149.9 cm; Wt 58.2 kg
[2017-05-05] MEDS ORDERED: METO1TAB54 PO (01:28)
[2017-05-05] MEDS ORDERED: DIPHTAB PO (01:30)
[2017-05-05] MEDS ORDERED: ONDANSETRON INJ 2 MG/ML 2 ML VIAL IV STA (01:32)
[2017-05-05] MEDS ORDERED: SODIUM CHLORIDE 0.9% 500ML 500 ML IV STA (01:32)
[2017-05-05 02:10] LABS: BASO % 0.2 %; BASO ABS # 0.02 K/uL (0-0.2); HEMATOCRIT 38.8 % (37-47); HEMOGLOBIN 13.3 g/dL (12.0-16.0); IG# 0.03 K/uL (0.00-0.02); LYMPH % 12.7 %; LYMPH ABS # 1.12 K/uL (1.2-3.4); MEAN CELL VOLUME 88.6 fL (80-100); MEAN CORPUSCULAR HEMOGLOBIN 30.4 pg (25-34); MEAN CORPUSCULAR HGB CONC 34.3 g/dl (32-36); MEAN PLATELET VOLUME 8.9 fL (7.4-10.4); MONO % 8.3 %; MONO ABS # 0.73 K/uL (0.11-0.59); NEUT % 78.5 %; NEUT ABS # 6.91 K/uL (1.4-6.5); PLATELET COUNT 238 K/uL (130-400); RED CELL DISTRIBUTION WIDTH CV 13.1 % (11.5-14.5); RED CELL DISTRIBUTION WIDTH SD 42.4 fL (36.4-46.3); WHITE BLOOD COUNT 8.81 K/uL (4.8-10.8)
[2017-05-05 03:33] LABS: ALBUMIN 3.9 gm/dl (3.4-5.0); CALCIUM 8.6 mg/dl (8.5-10.1); CREATININE 0.98 mg/dl (0.60-1.20); POTASSIUM 3.4 mmol/L (3.5-5.1); TOTAL PROTEIN 7.8 gm/dl (6.4-8.2)
[2017-05-05 04:17] VITALS: BP 99/62; PULSE 78; O2SAT 98
--- NOTE | 2017-05-05 06:50 | EMERGENCY ROOM VISIT NOTE ---
History Report prepared by Jim: Huong Ventura Under the Supervision of: Dr. Dian Han D.O. First contact with patient: 01:24 Chief Complaint: ABDOMINAL PAIN Stated Complaint: PAIN IN STOMACH,DIARRHEA,VOMITING,HEADACHE,LIGHT H History of Present Illness The patient is a 21 year old female who presents to the Emergency Room with complaints of worsening abdominal pain starting a few days ago. The patient states that she has had diarrhea and a headache with it. She reports that she went and saw her PCP yesterday who did blood work, a stool sample, and a CT of her abdomen and pelvis. She has not yet received the results of those tests. She reports that today she started vomiting and had a low grade fever. The patient notes that abdominal pain is worse after she eats or drinks and she becomes nauseous. The patient denies blood in her vomit. She notes that she is unsure if there is blood in her stool since she is currently on her menstrual cycle. The patient notes a history of GERD, stomach ulcers, and C-Diff. She states that she was on antibiotics when she got C-Diff. Source of History: patient Onset: a few days ago Position: abdomen Timing: worsening Modifying Factors (Worsening): eating Associated Symptoms: + fevers, + headache, + nausea, + vomiting, + diarrhea Note: The patient denies blood in her vomit. Review of Systems See HPI for pertinent positives & negatives. A total of 10 systems reviewed and were otherwise negative. Past Medical & Surgical Medical Problems: (1) C. difficile diarrhea (2) GERD (gastroesophageal reflux disease) (3) Sepsis (4) Stomach ulcer Surgical Problems: (1) S/P cholecystectomy Family History Patient reports no known family medical history. Social History Smoking Status: Never Smoker Drug Use: none Marital Status: in relationship Housing Status: lives with roommate Occupation Status: employed Current/Historical Medications Scheduled Probiotic Product (Probiotic), 1 CAP PO BID Scheduled PRN Diphenhydramine-Acetaminophen (Headache Pm), 1 TAB PO QPM PRN for HEADACHE Metoclopramide Hcl (Reglan), 2.5 MG PO DAILY PRN for Nausea Allergies Coded Allergies: Lactose (Verified Adverse Reaction, Intermediate, GI UPSET, 05/05/17) Physical Exam Vital Signs Date Time Temp Pulse Resp B/P (MAP) Pulse Ox O2 Delivery O2 Flow Rate FiO2 05/05/17 04:17 78 20 99/62 98 05/05/17 03:05 97 18 99/52 96 Room Air 05/05/17 01:05 36.8 85 16 114/77 97 Room Air Physical Exam HEENT: Head - normocephalic and atraumatic Pupils are equal, round, and reactive to light. Extraocular eye muscles are intact, and sclera are anicteric. Nose - moist nasal mucosa without discharge. Mouth - moist buccal mucosa. Oropharynx is nonerythematous and there is no tonsillar exudate or edema noted. Neck: Supple; no JVD, nuchal rigidity, cervical lymphadenopathy. Heart: Regular rate and rhythm. There is a normal S1 and S2 with no murmurs, clicks, or gallops appreciated. Lungs: Clear to auscultation bilaterally with no wheezes, rales, or rhonchi. Abdomen: Soft, diffuse mild tenderness, nondistended, with good bowel sounds. There are no palpable pulsatile masses or hepatosplenomegaly. There is no guarding, rigidity, or rebound noted. Extremities: No evidence of cyanosis, clubbing, or edema. There are easily palpable peripheral pulses. Skin: warm and dry with good turgor and no rashes. Medical Decision & Procedures Laboratory Results 05/05/17 01:45 Red Blood Count 4.38, Mean Corpuscular Volume 88.6, Mean Corpuscular Hemoglobin 30.4, Mean Corpuscular Hemoglobin Concent 34.3, Mean Platelet Volume 8.9, Neutrophils (%) (Auto) 78.5, Lymphocytes (%) (Auto) 12.7, Monocytes (%) (Auto) 8.3, Eosinophils (%) (Auto) 0.0, Basophils (%) (Auto) 0.2, Neutrophils # (Auto) 6.91, Lymphocytes # (Auto) 1.12, Monocytes # (Auto) 0.73, Eosinophils # (Auto) 0.00, Basophils # (Auto) 0.02 05/05/17 01:45 Test 05/05/17 01:45 05/05/17 01:50 White Blood Count 8.81 K/uL (4.8-10.8) Red Blood Count 4.38 M/uL (4.2-5.4) Hemoglobin 13.3 g/dL (12.0-16.0) Hematocrit 38.8 % (37-47) Mean Corpuscular Volume 88.6 fL (80-100) Mean Corpuscular Hemoglobin 30.4 pg (25-34) Mean Corpuscular Hemoglobin Concent 34.3 g/dl (32-36) Platelet Count 238 K/uL (130-400) Mean Platelet Volume 8.9 fL (7.4-10.4) Neutrophils (%) (Auto) 78.5 % Lymphocytes (%) (Auto) 12.7 % Monocytes (%) (Auto) 8.3 % Eosinophils (%) (Auto) 0.0 % Basophils (%) (Auto) 0.2 % Neutrophils # (Auto) 6.91 K/uL (1.4-6.5) Lymphocytes # (Auto) 1.12 K/uL (1.2-3.4) Monocytes # (Auto) 0.73 K/uL (0.11-0.59) Eosinophils # (Auto) 0.00 K/uL (0-0.5) Basophils # (Auto) 0.02 K/uL (0-0.2) RDW Standard Deviation 42.4 fL (36.4-46.3) RDW Coefficient of Variation 13.1 % (11.5-14.5) Immature Granulocyte % (Auto) 0.3 % Immature Granulocyte # (Auto) 0.03 K/uL (0.00-0.02) Anion Gap 8.0 mmol/L (3-11) Est Creatinine Clear Calc Drug Dose 69.4 ml/min Estimated GFR () 94.2 Estimated GFR (Non- 81.3 BUN/Creatinine Ratio 6.8 (10-20) Calcium Level 8.6 mg/dl (8.5-10.1) Total Bilirubin 0.6 mg/dl (0.2-1) Direct Bilirubin 0.2 mg/dl (0-0.2) Aspartate Amino Transf (AST/SGOT) 14 U/L (15-37) Alanine Aminotransferase (ALT/SGPT) 17 U/L (12-78) Alkaline Phosphatase 49 U/L (45-117) Total Protein 7.8 gm/dl (6.4-8.2) Albumin 3.9 gm/dl (3.4-5.0) Lipase 89 U/L (73-393) Urine Color DK YELLOW Urine Appearance CLEAR (CLEAR) Urine pH 6.0 (4.5-7.5) Urine Specific [place] > 1.045 (1.000-1.030) Urine Protein TRACE (NEG) Urine Glucose (UA) NEG (NEG) Urine Ketones TRACE (NEG) Urine Occult Blood TRACE (NEG) Urine Nitrite NEG (NEG) Urine Bilirubin NEG (NEG) Urine Urobilinogen NEG (NEG) Urine Leukocyte Esterase NEG (NEG) Urine WBC (Auto) 1-5 /hpf (0-5) Urine RBC (Auto) 0-4 /hpf (0-4) Urine Hyaline Casts (Auto) 0 /lpf (0-5) Urine Epithelial Cells (Auto) >30 /lpf (0-5) Urine Bacteria (Auto) NEG (NEG) Urine Crystals CALCIUM OXALATE (NONE Urine Pathogenic Casts /lpf (0) Urine Mucus PRESENT (NONE PRSENT) Urine Test NEG (NEG) Laboratory results per my review. Medications Administered Medications (Trade) Dose Ordered Sig/Alex Route Start Time Stop Time Status Last Admin Dose Admin Ondansetron HCl (Zofran Inj) 4 mg NOW STAT IV 05/05/17 01:32 05/05/17 01:33 DC 05/05/17 01:32 4 MG Sodium Chloride 500 ml @ 999 mls/hr Q31M STAT IV 05/05/17 01:32 05/05/17 02:02 DC 05/05/17 01:32 999 MLS/HR Procedure 0132: Ordered NSS 500 ml @ 999 mls/hr IV, Zofran Inj 4 mg IV. ED Course 0126: Past medical records reviewed. The patient was evaluated in room B5. A complete history and physical exam was performed. She had a CT abdomen and pelvis done yesterday that was ordered by her PCP. IMPRESSION: 1. No acute intra-abdominal or intrapelvic abnormality identified. 2. No bowel obstruction or focal bowel wall thickening. Normal appendix. 3. Cystic lesion of the left adnexum, 3.2 cm suggests ovarian cyst. 4. Prior cholecystectomy. Her earlier labs at [facility] were negative for a gram stain of stool, negative C-Diff, negative , negative lipase, negative CBC, normal renal function , and normal LFTs. 0132: Ordered NSS 500 ml @ 999 mls/hr IV, Zofran Inj 4 mg IV. I reviewed the results of the above tests with the patient. 0334: I reevaluated the patient and she feels much better. She is going to try to drink fluids. 0408: Upon reevaluation, the patient was able to keep the water down and feels fine. I discussed findings and results with her. She verbalized agreement of the treatment plan. The patient was discharged home. Medical Decision The patient is a 21 year old female who presents to the Emergency Room with complaints of worsening abdominal pain starting a few days ago. Differential diagnoses include recurrent C-Diff, colitis, gastroenteritis, gastric ulcer. Her earlier labs at [facility] were negative for a gram stain of stool, negative C-Diff, negative , negative lipase, negative CBC, normal renal function , and normal LFTs. LABS: negative Urine is positive for ketones, blood, and calcium oxalate crystals Normal LFTs Normal lipase Normal renal function Stable H&H No leukocytosis This is a 21-year-old female patient presents to the emergency department with persistent abdominal pain, diarrhea who is now vomiting with a low-grade fever. The patient saw her PCP earlier today who did lab work and CT scan which were all unremarkable. Patient became more concerned when she was unable to keep anything down. She received IV crystalloid therapy here along with some Zofran and is feeling much better at this time. Reexamination of her abdomen was unremarkable. She has been able to drink without any difficulty at all. I have encouraged the patient to follow-up with her PCP on Sunday if the symptoms persist. If she starts to vomit and is unable to keep anything down over the weekend, she should return here to the emergency department. Medication Reconcilliation Current Medication List: was personally reviewed by me Blood Pressure Screening Patient's blood pressure: Normal blood pressure Blood pressure disposition: Did not require urgent referral Impression Primary Impression: Vomiting Additional Impression: Diffuse abdominal pain Scribe Attestation The scribe's documentation has been prepared under my direction and personally reviewed by me in its entirety. I confirm that the note above accurately reflects all work, treatment, procedures, and medical decision making performed by me. Departure Information Dispostion Home / Self-Care Referrals Lou Alberto M.D. (PCP) Forms HOME CARE DOCUMENTATION FORM, IMPORTANT VISIT INFORMATION Patient Instructions My [facility] Additional Instructions Rest. Take a bland diet. Return to the ER for worsening symptoms such as fever or uncontrollable vomiting Otherwise, follow up with PCP Problem Qualifiers Primary Impression: Vomiting Vomiting type: unspecified Vomiting Intractability: non-intractable Nausea presence: with nausea Qualified Codes: R11.2 - Nausea with vomiting, unspecified
== END 2017-05-05 04:18 | disposition home or self-care (01) ==
LOC: C.EDB 00:59
DX: R11.2 Nausea with vomiting, unspecified (principal); R10.9 Unspecified abdominal pain; Z90.49 Acquired absence of other specified parts of digestive tract